=== PATIENT | male | born 1970 | race Two or more races ===

== ENCOUNTER 2023-09-02 19:38 | Emergency (ER) | payer SELFPAY ==
[~2023-09-02] VITALS: Ht 154.9 cm; Wt 66.3 kg
[2023-09-02 20:07] VITALS: BP 137/84; PULSE 101; RESP 16; TEMP 98
[2023-09-02] MEDS: ACETAMINOPHEN 325 MG TAB PO ONE (21:54)
[2023-09-02 21:56] LABS: Basophils # (auto) 0 10 ^3/uL (0-0.2); Basophils % (auto) 0.5 % (0.0-2.0); Eosinophils # (auto) 0.1 10 ^3/uL (0-0.8); Eosinophils % (auto) 1.5 % (0.0-7.0); Hematocrit 46.2 % (41.0-53.0); Lymphocytes # (auto) 1.7 10 ^3/uL (0.4-5.4); Lymphocytes % (auto) 25.1 % (10.0-50.0); Mean Corpuscular Hemoglobin 29.3 pg (28.0-32.0); Mean Corpuscular Hgb Conc. 32.5 g/dL (32.0-36.0); Monocytes # (auto) 0.5 10 ^3/uL (0-1.3); Monocytes % (auto) 7.9 % (0.0-12.0); Neutrophils # (auto) 4.3 10 ^3/uL (1.6-8.6); Nucleated Red Blood Cells % 0.1 %; Red Blood Cells 5.13 10^6/uL (4.5-5.90); Red Cell Distribution Width 13.9 % (11.8-14.3); White Blood Cell 6.7 10^3/uL (4.4-10.8)
[2023-09-02 22:14] LABS: Alanine Aminotransferase 60 U/L (7-40); Albumin 4.3 g/dL (3.2-4.8); Alkaline Phosphatase 161 U/L (46-116); Anion Gap 6 (5-15); Aspartate Aminotransferase 45 U/L (13-40); Bilirubin, Total 0.2 mg/dL (0.2-1.0); Blood Urea Nitrogen 16 mg/dL (9-23); CRP High Sensitivity 0.45 mg/dL (<1.0); Calcium 9.8 mg/dL (8.5-10.1); Carbon Dioxide 29 mmol/L (20-30); Chloride 108 mmol/L (98-107); Glucose 128 mg/dL (74-106); Potassium 3.9 mmol/L (3.5-5.1); Sodium 143 mmol/L (136-145); Total Protein 7.2 g/dL (5.7-8.2)
[2023-09-02 22:44] LABS: Erythrocyte Sedimentation Rate 8 mm/hr (0-20)
[2023-09-02 23:21] VITALS: O2SAT 96
== END 2023-09-02 23:27 | disposition home or self-care (01) ==
LOC: ER 19:38
DX: H11.32 Conjunctival hemorrhage, left eye (principal)
CPT/HCPCS: 36415; 80053; 85025; 85652; 86141